=== PATIENT | female | born 2000 | race Asian ===

== ENCOUNTER 2023-03-07 00:01 | Emergency (ER) | payer OTHER, SELFPAY ==
--- NOTE | ~2023-03-07 | XR_ITS ---
EXAMINATION: XR chest 1V portable INDICATION: Shortness of breath TECHNIQUE: Portable AP chest at 0111 hours COMPARISON: None available FINDINGS: The lungs are free of acute opacities. No pleural effusion or pneumothorax. The cardiomedia stinal silhouette is normal. The visualized bones and soft tissues are unremarkable. IMPRESSION: 1. No acute cardiopulmonary abnormality. Reviewed, dictated and finalized at location A.
[2023-03-07 00:04] VITALS: BP 152/108; PULSE 141; RESP 18; TEMP 36.4; O2SAT 100
--- NOTE | 2023-03-07 00:07 | ECG_ITS ---
Measurements Intervals [place] Rate: 132 P: 52 TX: 151 QRS: 37 QRSD: 76 T: 34 QT: 332 QTc: 493 Interpretive Statements SINUS TACHYCARDIA NONSPECIFIC ST & T-WAVE ABNORMALITY ABNORMAL RHYTHM ECG NO PREVIOUS ECG AVAILABLE FOR COMPARISON Electronically Signed On 03-07-2023 11:24:27 CDT by Claude Roberot M.D.
[2023-03-07 00:20] VITALS: BP 144/105; PULSE 123; RESP 25; O2SAT 100
[2023-03-07 00:22] VITALS: PULSE 117
[2023-03-07 00:57] LABS: Basophils Absolute Auto 0.1 K/mm3 (0.0-0.1); Basophils Percent Auto 0.5 % (0.2-1.2); Eosinophils Absolute Auto 0.2 K/mm3 (0-0.3); Eosinophils Percent Auto 1.7 % (0-4.4); Hematocrit 41.1 % (37.0-47.0); Hemoglobin 12.8 g/dL (12.0-15.0); Immature Granulocyte Absolute 0.15 K/mm3 (0.00-0.031); Immature Granulocyte Percent A 1.2 % (0-0.5); Lymphocytes Absolute Auto 4.27 K/mm3 (0.9-3.2); Lymphocytes Percent Auto 34.4 % (18.3-44.2); Mean Corpuscular HGB Conc 31.1 g/dl (32-36); Mean Corpuscular Hemoglobin 24.2 pg (26-34); Mean Corpuscular Volume 77.7 fl (80-100); Mean Platelet Volume 10.1 fl (7.4-10.4); Monocytes Absolute Auto 0.8 K/mm3 (0.1-0.6); Monocytes Percent Auto 6.1 % (2.6-8.5); Neutrophils Percent Auto 56.1 % (45.5-73.1); Platelet Count Result 317 k/mm3 (150-375); Red Blood Count 5.29 M/mm3 (4.2-5.4); Red Cell Distribution Width 15.6 % (11.5-14.5); White Blood Count 12.4 K/mm3 (4.5-10.0)
[2023-03-07] MEDS: SODIUM CHLORIDE 0.9% IV 1,000 ML 999 ML IV CONT (00:58)
[2023-03-07 01:06] LABS: Lactic Acid Reflex 1.7 mmol/L (0.7-2.0)
[2023-03-07 01:07] LABS: Alanine Aminotransferase 23 U/L (6-35); Albumin Level 4.7 g/dL (3.5-5.1); Alkaline Phosphatase 93 U/L (38-126); Anion Gap 9 mmol/L (8-16); Aspartate Amino Transferase 35 U/L (14-36); Bilirubin,Total 0.5 mg/dL (0.2-1.3); Blood Urea Nitrogen 9 mg/dL (7-17); Calcium 9.1 mg/dL (8.4-10.2); Carbon Dioxide 27 mmol/L (22-30); Chloride 101 mmol/L (98-107); Estimated CRCL calculation 106 ml/min; Estimated Glomerular Filt Rate > 60; Glucose 155 mg/dL (65-110); Magnesium 1.9 mg/dL (1.6-2.3); Potassium 3.1 mmol/L (3.4-5.0); Sodium 137 mmol/L (137-145)
[2023-03-07 01:19] LABS: Troponin I < 0.012 ng/mL (0.000-0.034)
[2023-03-07 01:27] LABS: Appearance Urine Clear (Clear); Bilirubin Urine Negative (Negative); Blood Urine Negative (Negative); Color Urine Yellow (Yellow); Glucose Urine UA Negative (Negative); Ketones Urine Negative (Negative); Leukocyte Esterase Ur Negative LEU/UL (Negative); Nitrate Urine Negative (Negative); Protein Urine Negative (Negative); Specific Grav Ur 1.005 (1.001-1.035); Urobilinogen Urine 0.2 mg/dL (<2.0)
[2023-03-07 01:28] LABS: Add Urine Microscopic? NO
[2023-03-07 02:28] VITALS: PULSE 86; RESP 22; O2SAT 100
--- NOTE | 2023-03-07 03:52 | ED.GENADULT ---
HPI - General Adult General Chief complaint: Recheck/Abnormal Lab/Rx Stated complaint: HTN, dizziness Time Seen by Provider: 03/07/23 00:17 History of Present Illness HPI narrative: Patient is a 23-year-old female who presents the emergency department with chief complaint of hypertension and tachycardia. Patient reports she has prior history of hypertension takes metoprolol for her high blood pressure. The patient reports that this evening she noticed that her blood pressure was running high and then also noticed that her heart rate was running fast the patient does report that she has history of sinus tachycardia and reports that that is normally controlled by her metoprolol. Patient reports a little bit of tightness in her chest when her heart rate was fast but otherwise reports no shortness of breath or diaphoresis. Related Data Allergies Allergy/AdvReac Type Severity Reaction Status Date / Time No Known Allergies Allergy Verified 03/07/23 00:21 Review of Systems Review of Systems: A 10 system review of systems was completed on the patient and is negative except for what is stated in the HPI. Nursing and ancillary documentation was reviewed. Exam Narrative: GENERAL: Well-appearing, well-nourished, and in no acute distress. HEAD: Normocephalic, atraumatic. EYES: PERRLA and EOMI. ENT: Nares clear, no rhinorrhea or epistaxis. Mucous membranes moist. NECK: Supple. CHEST: Clear to auscultation. No respiratory distress. HEART: Regular rate and rhythm. No murmur heard. Normal peripheral pulses. ABDOMEN: Soft, nontender, nondistended, normal active bowel sounds. EXTREMITIES: Normal range of motion. No edema. SKIN: Warm, dry, no rash. NEURO: No focal deficits. Alert and oriented x3. PSYCH: Normal mood and affect. Course Vital Signs Vital signs: Vital Signs Temperature 36.4 C L 03/07/23 00:04 Pulse Rate 141 H 03/07/23 00:04 Respiratory Rate 18 03/07/23 00:04 Blood Pressure 152/108 H 03/07/23 00:04 Pulse Oximetry 100 03/07/23 00:04 Oxygen Delivery Room Air 03/07/23 00:04 Temperature 36.4 C L 03/07/23 00:04 Pulse Rate 86 03/07/23 02:28 Respiratory Rate 22 H 03/07/23 02:28 Blood Pressure 144/105 H 03/07/23 00:20 Pulse Oximetry 100 03/07/23 02:28 Oxygen Delivery Room Air 03/07/23 00:04 Medical Decision Making MDM Narrative Medical decision making narrative: Differential diagnosis includes hypertensive urgency, sinus tachycardia, arrhythmia, palpitations, electrolyte abnormality Laboratory studies were obtained and patient showed a white count of 4.4 electrolytes are within normal limits troponin was negative lactic acid was 1.7 urinalysis showed no evidence of UTI. Chest x-ray showed no evidence of focal infiltrate EKG was sinus tachycardia rate of [address] elevation or ST depression Patient was observed in the emergency department her blood pressure has come down to 121/80 and her heart rate has come down to 75. Patient is doing much better at this time resting comfortably. Patient be discharged home to follow-up with her primary care provider Vital Signs Vital Signs: Vital Signs Temperature 36.4 C L 03/07/23 00:04 Pulse Rate 141 H 03/07/23 00:04 Respiratory Rate 18 03/07/23 00:04 Blood Pressure 152/108 H 03/07/23 00:04 Pulse Oximetry 100 03/07/23 00:04 Oxygen Delivery Room Air 03/07/23 00:04 Temperature 36.4 C L 03/07/23 00:04 Pulse Rate 86 03/07/23 02:28 Respiratory Rate 22 H 03/07/23 02:28 Blood Pressure 144/105 H 03/07/23 00:20 Pulse Oximetry 100 03/07/23 02:28 Oxygen Delivery Room Air 03/07/23 00:04 Lab Data 03/07/23 00:44 03/07/23 00:44 Labs: Lab Results 03/07/23 03/07/23 Range/Units 00:44 00:57 WBC 12.4 H (4.5-10.0) K/mm3 RBC 5.29 (4.2-5.4) M/mm3 Hgb 12.8 (12.0-15.0) g/dL Hct 41.1 (37.0-47.0) % MCV 77.7 L (80-100) fl MCH 24.2 L (26-34)
[2023-03-07 04:01] VITALS: BP 121/87; PULSE 73; RESP 22; O2SAT 100
== END 2023-03-07 04:10 | disposition home or self-care (01) ==
PROVIDERS: Emergency Provider Emergency Medicine
DX: R00.0 Tachycardia, unspecified (principal); R00.2 Palpitations; I10 Essential (primary) hypertension; R94.31 Abnormal electrocardiogram [ECG] [EKG]
CPT/HCPCS: 36415; 71045; 80053; 81003; 81025; 83605; 83735; 84484; 85025; 93005; 96360; 96361; 99284; J7030